=== PATIENT | female | born 1950 | race Caucasian/White ===

== ENCOUNTER 2017-06-25 16:58 | Emergency (ER) | payer MEDICARE, MEDICAID ==
[~2017-06-25] VITALS: Ht 162.6 cm; Wt 55.0 kg
[2017-06-25 17:03] VITALS: BP 153/67
== END 2017-06-25 20:25 | disposition left against medical advice (07) ==
LOC: ER 17:10
DX: M54.9 Dorsalgia, unspecified (principal); Z53.21 Procedure and treatment not carried out due to patient leaving prior to being seen by health care provider